=== PATIENT | female | born 1970 | race American Indian/Alaskan Native ===

== ENCOUNTER 2018-06-01 16:22 | Emergency (ER) | payer BC ==
[2018-06-01] MEDS ORDERED: IBUPROFEN PO ONE (16:46)
--- NOTE | 2018-06-01 16:46 | Emergency Department Report ---
ED General Adult HPI - General Chief complaint: Back Pain/Injury Stated complaint: PAIN BEHIND (R) SHOULDER BLADE Time Seen by Provider: 06/01/18 16:40 Source: patient Mode of arrival: Ambulatory Limitations: No Limitations - History of Present Illness Initial comments: Physical examination patient here complaining of gradually increasing pain behind her right shoulder and denies any trauma. She has no medical problems. She said the pain is worse when she coughs. Denies any cold symptoms. She says she has some shortness of breath and denies any history of control or any risk factors for blood clots. Pain is 4/10 with cough and and no pain without coughing. She said she has some pain when she takes a deep breath in. No pain with breathing normally. Denies any chest congestion or runny nose. Denies any fever or chills. No medication taken prior to coming to the emergency room MD Complaint: right shoulder blade pain Onset/Timin -: days(s) Location: back (right upper back), right Radiation: non-radiation Severity scale (0 -10): 4 Quality: sharp Consistency: intermittent Improves with: rest Worsens with: other (cough and) Associated Symptoms: cough, shortness of breath. denies: confusion, chest pain, diaphoresis, fever/chills, headaches, loss of appetite, malaise, nausea/vomiting, rash, seizure, syncope, weakness Treatments Prior to Arrival: none - Related Data Previous Rx's Medication Instructions Recorded Last Taken Type Albuterol Sulfate [Ventolin HFA] 2 puff IH Q4H PRN #1 hfa.aer.ad 03/28/16 Unknown Rx Azithromycin [Zithromax Z-RENALDO] 250 mg PO DAILY #6 tablet 03/28/16 Unknown Rx Benzonatate [Tessalon Perles] 100 mg PO Q8HR #15 capsule 03/28/16 Unknown Rx Cetirizine HCl [ZyrTEC] 10 mg PO DAILY #30 capsule 03/28/16 Unknown Rx Ibuprofen [Motrin 800 MG tab] 800 mg PO Q8HR PRN #30 tablet 03/28/16 Unknown Rx Doxycycline Hyclate [Doxycycline 100 mg PO Q12HR 7 Days #14 tab 03/16/18 Unknown Rx Hyclate TAB] predniSONE [Deltasone] 3 tab PO QDAY 5 Days #15 tab 03/16/18 Unknown Rx Cyclobenzaprine [Flexeril] 10 mg PO TID PRN #12 tablet 06/01/18 Unknown Rx Ibuprofen [Motrin] 600 mg PO Q8H PRN #12 tablet 06/01/18 Unknown Rx Allergies Allergy/AdvReac Type Severity Reaction Status Date / Time No Known Allergies Allergy Verified 03/16/18 10:40 ED Review of Systems ROS: Stated complaint: PAIN BEHIND (R) SHOULDER BLADE Other details as noted in HPI Constitutional: denies: chills, fever Eyes: denies: eye pain, eye discharge ENT: denies: ear pain, throat pain, congestion Respiratory: cough, shortness of breath, SOB with exertion, SOB at rest. denies: stridor, wheezing Cardiovascular: denies: chest pain, palpitations, dyspnea on exertion, edema, syncope, paroxysmal nocturnal dyspnea Gastrointestinal: denies: abdominal pain, nausea, vomiting, constipation, hematemesis, hematochezia Musculoskeletal: back pain. denies: joint swelling, arthralgia, myalgia Skin: denies: rash Neurological: denies: headache, weakness, numbness, paresthesias, confusion, abnormal gait, vertigo ED Past Medical Hx - Past Medical History Previous Medical History?: No Additional medical history: bronchitis - Surgical History Past Surgical History?: Yes Additional Surgical History: Carpel Tunnel L - Family History Family history: hypertension - Social History Smoking Status: Never Smoker Substance Use Type: None - Medications Home Medications: Home Medications Medication Instructions Recorded Confirmed Last Taken Type Albuterol Sulfate [Ventolin HFA] 2 puff IH Q4H PRN #1 hfa.aer.ad 03/28/16 Unknown Rx Azithromycin [Zithromax Z-RENALDO] 250 mg PO DAILY #6 tablet 03/28/16 Unknown Rx Benzonatate [Tessalon Perles] 100 mg PO Q8HR #15 capsule 03/28/16 Unknown Rx Cetirizine HCl [ZyrTEC] 10 mg PO DAILY #30 capsule 03/28/16 Unknown Rx Ibuprofen [Motrin 800 MG tab] 800 mg PO Q8HR PRN #30 tablet 03/28/16 Unknown Rx Doxycycline Hyclate [Doxycycline 100 mg PO Q12HR 7 Days #14 tab 03/16/18 Unknown Rx Hyclate TAB] predniSONE [Deltasone] 3 tab PO QDAY 5 Days #15 tab 03/16/18 Unknown Rx Cyclobenzaprine [Flexeril] 10 mg PO TID PRN #12 tablet 06/01/18 Unknown Rx Ibuprofen [Motrin] 600 mg PO Q8H PRN #12 tablet 06/01/18 Unknown Rx ED Physical Exam - General Limitations: No Limitations General appearance: alert, in no apparent distress - Head Head exam: Present: atraumatic, normocephalic, normal inspection - Eye Eye exam: Present: normal appearance, PERRL, EOMI Pupils: Present: normal accommodation - ENT ENT exam: Present: normal exam, normal orophraynx, mucous membranes moist, TM's normal bilaterally, normal external ear exam - Neck Neck exam: Present: normal inspection, full ROM. Absent: tenderness, lymphadenopathy - Respiratory Respiratory exam: Present: normal lung sounds bilaterally. Absent: respiratory distress, chest wall tenderness (level level for) - Cardiovascular Cardiovascular Exam: Present: regular rate, normal rhythm, normal heart sounds - GI/Abdominal GI/Abdominal exam: Present: soft, normal bowel sounds. Absent: distended, tenderness, guarding, rebound, rigid, organomegaly, mass - Extremities Exam Extremities exam: Present: normal inspection, full ROM, normal capillary refill, other (No cce. + 2 pulses in all extremities, no neurovascular compromise). Absent: tenderness, pedal edema, joint swelling - Back Exam Back exam: Present: normal inspection, full ROM, other (ambulates without any difficulties). Absent: tenderness, CVA tenderness (R) (""), muscle spasm, paraspinal tenderness, vertebral tenderness, rash noted - Neurological Exam Neurological exam: Present: alert, oriented X3, normal gait, reflexes normal, other (no focal deficit). Absent: motor sensory deficit - Psychiatric Psychiatric exam: Present: normal affect, normal mood - Skin Skin exam: Present: warm, dry, intact, normal color. Absent: rash ED Course Vital Signs 06/01/18 16:26 Temperature 98.2 F Pulse Rate 84 Respiratory 18 Rate Blood Pressure 134/85 O2 Sat by Pulse 98 Oximetry - Reevaluation(s) Reevaluation #1: 06/01/18 19:43 Patient is stable in no acute distress. X-ray shows no acute findings and d-di renee is normal. ED Medical Decision Making - Lab Data Result diagrams: 06/01/18 17:01 Lab Results 06/01/18 06/01/18 Range/Units 17:01 17:01 WBC 5.0 (4.5-11.0) K/mm3 RBC 3.95 (3.65-5.03) M/mm3 Hgb 12.5 (10.1-14.3) gm/dl Hct 36.9 (30.3-42.9) % MCV 93 (79-97) fl MCH 32 (28-32) pg MCHC 34 (30-34) % RDW 12.6 L (13.2-15.2) % Plt Count 257 (140-440) K/mm3 Lymph % (Auto) 34.5 (13.4-35.0) % [place] % (Auto) 7.9 H (0.0-7.3) % Eos % (Auto) 5.3 H (0.0-4.3) % Baso % (Auto) 1.1 (0.0-1.8) % Lymph # 1.7 (1.2-5.4) K/mm3 [place] # 0.4 (0.0-0.8) K/mm3 Eos # 0.3 (0.0-0.4) K/mm3 Baso # 0.1 (0.0-0.1) K/mm3 Seg Neutrophils % 51.2 (40.0-70.0) % Seg Neutrophils # 2.5 (1.8-7.7) K/mm3 D-Dimer < 135.00 (0-234) ng/mlDDU - Radiology Data Radiology results: report reviewed Chest x-ray 2 views dictated by radiologist and report reviewed by myself. No acute cardiopulmonary findings. - Medical Decision Making This is a 47-year-old female here for left upper back pain worse with taken and cough in a deep breath. Patient found to have upper back muscle strain and will be discharged home on Flexeril and Motrin. I discuss diagnosis, x-ray and laboratory results the patient and she was understanding. CBC and d-dimer normal level. Chest x-ray reveals no acute findings. Patient is given Motrin 800 mg emergency room and discharged home in stable condition with prescription for Motrin and Flexeril and to follow up with her primary care and orthopedic doctor in 3 days. - Differential Diagnosis PE, PNA, pleurisy, muscle strain, costochondritis Critical care attestation.: If time is entered above; I have spent that time in minutes in the direct care of this critically ill patient, excluding procedure time. ED Disposition Clinical Impression: Muscle strain of left upper back Qualifiers: Encounter type: initial encounter Qualified Code(s): S29.012A - Strain of muscle and tendon of back wall of thorax, initial encounter Disposition: - TO HOME OR SELFCARE Is pt being admited?: No Does the pt Need Aspirin: No Condition: Stable Instructions: Muscle Strain (ED) Additional Instructions: Please follow up with primary care and orthopedic doctor in 3 days. Take Pain medication as prescribed but please do not take Flexeril while driving as this medication causes drowsiness If your condition worsens, please return to the emergency room Referrals: RY LR MD [Primary Care Provider] - 06/04/18 Forms: Work/School Release Form(ED)
[2018-06-01 17:22] LABS: Basophils # (Auto) 0.1 K/mm3 (0.0-0.1); Basophils % (Auto) 1.1 % (0.0-1.8); Eosinophils # (Auto) 0.3 K/mm3 (0.0-0.4); Eosinophils % (Auto) 5.3 % (0.0-4.3); Hematocrit 36.9 % (30.3-42.9); Hemoglobin 12.5 gm/dl (10.1-14.3); Lymphocytes # (Auto) 1.7 K/mm3 (1.2-5.4); Lymphocytes % (Auto) 34.5 % (13.4-35.0); Mean Corpuscular HGB Conc 34 % (30-34); Mean Corpuscular Volume 93 fl (79-97); Monocytes # (Auto) 0.4 K/mm3 (0.0-0.8); Monocytes % (Auto) 7.9 % (0.0-7.3); Platelet Count 257 K/mm3 (140-440); Red Blood Count 3.95 M/mm3 (3.65-5.03); Red Cell Distribution Width 12.6 % (13.2-15.2)
--- NOTE | 2018-06-01 18:50 | XRay Report ---
FINAL REPORT EXAM: XR CHEST ROUTINE 2V HISTORY: cough, fever 1 month TECHNIQUE: PA and lateral views of the chest Comparison: None FINDINGS: There is no evidence of infiltrate, pneumothorax or pleural fluid collection. The cardiomediastinal silhouette is normal in appearance. The bony structures are unremarkable. IMPRESSION: 1. No evidence of an acute pulmonary process. If the patient remains symptomatic, CT chest may be helpful for further evaluation.
[2018-06-03 12:29] VITALS: BP 134/85
== END 2018-06-01 20:00 | disposition home or self-care (01) ==
LOC: ED 16:22
DX: S29.012A Strain of muscle and tendon of back wall of thorax, initial encounter (principal); R05 Cough; R06.02 Shortness of breath; X58.XXXA Exposure to other specified factors, initial encounter; Y93.89 Activity, other specified; Y92.89 Other specified places as the place of occurrence of the external cause; Y99.8 Other external cause status
CPT/HCPCS: 36415; 71046; 85025; 85379